=== PATIENT | female | born 1970 | race Caucasian/White ===

== ENCOUNTER 2021-01-06 13:03 | Emergency (ER) | payer OTHER ==
[~2021-01-06] VITALS: Ht 157.5 cm; Wt 51.1 kg
[2021-01-06 13:03] VITALS: BP 123/72
--- NOTE | 2021-01-06 14:12 | PHYS DOC ---
Adult General Chief Complaint Chief Complaint: MULTIPLE COMPLAINTS HPI HPI Patient is a 50-year-old female patient presenting to the ED today with multiple complaints. Patient states she has had chronic left upper quadrant abdominal pain, flank pain, low back pain, numbness and tingling to bilateral lower extremities, swelling to bilateral lower extremities, she states symptoms have been going on for months. She states her own PCP has been working her up for all the symptoms. She states they did lab work and she was told if she is not feeling better she should come to the ED or go to urgent care. She states she called urgent care and they told her this is a case for the ED. Patient rates her pain as mild and intermittent. She states currently she is on her menstrual cycle and she feels her symptoms are worse. Denies any fever. Patient is also complaining of dysuria that began a couple days ago. Review of Systems Review of Systems Constitutional: Denies fever or chills [] Eyes: Denies change in visual acuity, redness, or eye pain [] HENT: Denies nasal congestion or sore throat [] Respiratory: Denies cough or shortness of breath [] Cardiovascular: No additional information not addressed in HPI [] GI: Reports left upper quadrant abdominal pain, reports dysuria, denies nausea, vomiting, bloody stools or diarrhea [] : Denies dysuria or hematuria [] Musculoskeletal: Reports low back pain, left flank pain, lower extremity swelling Integument: Denies rash or skin lesions [] Neurologic: Denies headache, focal weakness or sensory changes [] All other systems were reviewed and found to be within normal limits, except as documented in this note. Allergies Allergies Allergies Coded Allergies Type Severity Reaction Last Updated Verified No Known Drug Allergies 01/06/21 No Physical Exam Physical Exam Constitutional: Well developed, well nourished, no acute distress, non-toxic appearance. [] HENT: Normocephalic, atraumatic, bilateral external ears normal, oropharynx moist, no oral exudates, nose normal. [] Eyes: PERRLA, EOMI, conjunctiva normal, no discharge. [] Neck: Normal range of motion, no tenderness, supple, no stridor. [] Cardiovascular:Heart rate regular rhythm, no murmur [] Lungs & Thorax: Bilateral breath sounds clear to auscultation [] Abdomen: Bowel sounds normal, soft, slight tenderness in the left upper quadrant, no right upper quadrant or right lower quadrant tenderness, no masses, no pulsatile masses. [] Skin: Warm, dry, no erythema, no rash. [] Back: No tenderness, no CVA tenderness. [] Extremities: No tenderness, no cyanosis, no clubbing, ROM intact, no edema. [] Neurologic: Alert and oriented X 3, normal motor function, normal sensory function, no focal deficits noted. [] Psychologic: Affect normal, judgement normal, mood normal. [] Current Patient Data Lab Results Laboratory Tests Test 01/06/21 13:30 POC Urine HCG, Qualitative hcg negative (Negative) EKG EKG [] Radiology/Procedures Radiology/Procedures []PROCEDURE: CT ABDOMEN PELVIS WO CONTRAST CT ABDOMEN+PELVIS WO dated 01/06/2021 1:56 PM Indication:Reason: LUQ pain, urinary frequency / Spl. Instructions: / History: Comparison: No comparison is available. Technique: Helical noncontrast images were performed. Sagittal and coronal reconstructions were obtained. One or more of the following individualized dose reduction techniques were utilized for this examination: 1. Automated exposure control 2. Adjustment of the mA and/or kV according to patient size 3. Use of iterative reconstruction technique Findings: The lung bases are clear. There are small cysts in the liver. The liver and spleen otherwise appear normal. Evaluation of the solid organs is somewhat limited by lack of IV contrast. The kidneys show no apparent mass, calcification or obstruction. The adrenal glands are not enlarged. The pancreas appears normal. No retroperitoneal or mesenteric adenopathy is seen. There is no apparent abdominal mass or inflammatory process. Evaluation for subtle inflammatory abnormalities is somewhat limited by lack of contrast. At least a portion of a normal appendix is probably seen posterior and inferior to the cecum. Images through the pelvis show no abnormality of the distal ureters or bladder. The bladder was not well-distended. A left side pelvic callus cases and is thought to be most consistent with a phlebolith. No pelvic or inguinal adenopathy is seen. The uterus and adnexal areas appear normal for age. There is no apparent pelvic mass or inflammatory process. IMPRESSION: No identified acute abnormality. Electronically signed by: Jt Goins Jr., MD (01/06/2021 2:17 PM) [id number] DICTATED AND SIGNED BY: JT GOINS Jr, MD DATE: 01/06/21 1412 CC: REGLACRISTY Rip RAHMANN; PCP,UNKNOWN ~MTH0 0 Heart Score C/O Chest Pain: N/A Risk Factors: Risk Factors: DM, Current or recent (<one month) smoker, HTN, HLP, family history of CAD, obesity. Risk Scores: Risk Factors: DM, Current or recent (<one month) smoker, HTN, HLP, family history of CAD, obesity. Course & Med Decision Making Course & Med Decision Making Pertinent Labs and Imaging studies reviewed. (See chart for details) This is a 50-year-old female patient with no significant medical history presenting today with multiple complaints including chronic abdominal pain, chronic low back pain, flank pain, lower extremity swelling chronic, dysuria for couple days. Currently on her menstrual cycle. Reports her PCP is working her up for her symptoms. Negative urine hCG, UA is negative. CT of the abdomen and pelvic is negative for any acute findings. CBC CMP lipase with no acute findings. Patient was discharged home. Follow-up with PCP. Brenda Disclaimer Brenda Disclaimer This electronic medical record was generated, in whole or in part, using a voice recognition dictation system. Departure Departure: Impression: Primary Impression: Abdominal pain Additional Impressions: Low back pain Left flank pain Disposition: HOME / SELF CARE / HOMELESS Condition: STABLE Referrals: PCP,UNKNOWN (PCP) follow up with your doctor in 1 week Patient Instructions: Abdominal Pain (Nonspecific), Back Pain, Adult, [id number], Flank Pain, [id number] Additional Instructions: Your evaluated in the emergency room, your CT of the abdomen and pelvic is negative for any acute findings, your urine is negative for infection. Your lab work has no acute findings. Please follow-up with your doctor next week Problem Qualifiers Primary Impression: Abdominal pain Abdominal location: left upper quadrant Qualified Codes: R10.12 - Left upper quadrant pain Additional Impressions: Low back pain Chronicity: chronic Back pain laterality: bilateral Sciatica presence: without sciatica Qualified Codes: M54.5 - Low back pain; G89.29 - Other chronic pain RAOULSILVINORosaCRISTY Rip FAYE January 06, 2021 14:12
[2021-01-06 14:15] LABS: BILIRUBIN,URINE NEG (NEG); CLARITY,URINE HAZY; COLOR,URINE AMBER; GLUCOSE,URINE NEG (NEG)
[2021-01-06 14:16] LABS: BACTERIA,URINE 0 /HPF (0-FEW); NITRITE,URINE NEG (NEG); RBC,URINE TNTC /HPF (0-2); UROBILINOGEN,URINE 0.2 mg/dL (0.2 mg/dL); WBC,URINE 0 /HPF (0-4)
[2021-01-06 14:19] LABS: AMPHETAMINE/METHAMPHETAMINE NEG (NEG); BARBITURATES NEG (NEG); BENZODIAZEPINES NEG (NEG); CANNABINOIDS NEG (NEG); COCAINE NEG (NEG); METHADONE NEG (NEG); OPIATES NEG (NEG); PHENCYCLIDINE NEG (NEG)
--- NOTE | 2021-01-06 14:20 | RAD ---
CT ABDOMEN+PELVIS WO dated 01/06/2021 1:56 PM Indication:Reason: LUQ pain, urinary frequency / Spl. Instructions: / History: Comparison: No comparison is available. Technique: Helical noncontrast images were performed. Sagittal and coronal reconstructions were obtai landy. One or more of the following individualized dose reduction techniques were utilized for this examinat ion: 1. Automated exposure control 2. Adjustment of the mA and/or kV according to patient size 3. Use of iterative reconstruction technique Findings: The lung bases are clear. There are small cysts in the liver. The liver and spleen otherwise appear n ormal. Evaluation of the solid organs is somewhat limited by lack of IV contrast. The kidneys show no apparent mass, calcification or obstruction. The adrenal glands are not enlarged. The pancreas appea rs normal. No retroperitoneal or mesenteric adenopathy is seen. There is no apparent abdominal mass o r inflammatory process. Evaluation for subtle inflammatory abnormalities is somewhat limited by lack of contrast. At least a portion of a normal appendix is probably seen posterior and inferior to the c ecum. Images through the pelvis show no abnormality of the distal ureters or bladder. The bladder was not w ell-distended. A left side pelvic callus cases and is thought to be most consistent with a phlebolith . No pelvic or inguinal adenopathy is seen. The uterus and adnexal areas appear normal for age. There is no apparent pelvic mass or inflammatory process. IMPRESSION: No identified acute abnormality. Electronically signed by: Martell Fierro Jr., MD (01/06/2021 2:17 PM) [id number]
[2021-01-06 14:55] LABS: CALCIUM 9.2 mg/dL (8.5-10.1); CREATININE 0.8 mg/dL (0.6-1.0); GFR 76.6; POTASSIUM 3.8 mmol/L (3.5-5.1)
[2021-01-06 15:01] LABS: ALBUMIN 4.1 g/dL (3.4-5.0); ALBUMIN/GLOBULIN RATIO 1.3 (1.0-1.7); TOTAL BILIRUBIN 0.5 mg/dL (0.2-1.0); TOTAL PROTEIN 7.2 g/dL (6.4-8.2)
[2021-01-06 15:02] LABS: BASO # 0.1 x10^3/uL (0.0-0.2); BASO % 1 % (0-3); EOS # 0.2 x10^3/uL (0.0-0.7); EOS % 3 % (0-3); HEMATOCRIT 36.3 % (36.0-47.0); HEMOGLOBIN 12.1 g/dL (12.0-15.5); LYMPH # 1.5 x10^3/uL (1.0-4.8); LYMPH % 19 % (24-48); MEAN CORPUSCULAR HEMOGLOBIN 30 pg (25-35); MEAN CORPUSCULAR HGB CONC 33 g/dL (31-37); MEAN CORPUSCULAR VOLUME 90 fL (79-100); MONO # 0.6 x10^3/uL (0.0-1.1); MONO % 7 % (0-9); NEUT # 5.6 x10^3uL (1.8-7.7); NEUT % 70 % (31-73); PLATELET COUNT 231 x10^3/uL (140-400); RED BLOOD COUNT 4.04 x10^6/uL (3.50-5.40)
== END 2021-01-06 15:35 | disposition home or self-care (01) ==
LOC: ER 13:03
DX: R10.12 Left upper quadrant pain (principal); M54.5 Low back pain; G89.29 Other chronic pain; R30.0 Dysuria
CPT/HCPCS: 36415; 74176; 80053; 80307; 81001; 81025; 83690; 85025; 99284